=== PATIENT | female | born 1990 | race African-American/Black ===

== ENCOUNTER 2016-06-01 08:08 | Emergency (ER) | payer MEDICAID, OTHER ==
--- NOTE | 2016-06-01 09:11 | ER Document Report ---
ED General - General Chief Complaint: Headache Stated Complaint: HEADACHE Mode of Arrival: Ambulatory Information source: Patient Notes: 26-year-old female presents with complaints of generalized headache nausea vomiting and diarrhea. Patient notes symptoms have been ongoing for a few days , denies any fevers or chills. Patient notes multiple family members have similar complaints TRAVEL OUTSIDE OF THE [place] IN LAST 30 DAYS: No - HPI Onset: Last week Onset/Duration: Persistent Quality of pain: Achy Severity: Mild Pain Level: 1 Associated symptoms: Diarrhea, Headache, Nausea, Vomiting Exacerbated by: Denies Relieved by: Denies Similar symptoms previously: No Recently seen / treated by doctor: No - Related Data Allergies/Adverse Reactions: No Known Allergies Allergy (Verified 06/01/16 08:15) Past Medical History - Social History Smoking Status: Current Every Day Smoker Cigarette use (# per day): No Chew tobacco use (# tins/day): No Smoking Education Provided: No Frequency of alcohol use: None Drug Abuse: None Family History: Arthritis, CAD, CVA, DM, Hypertension, Malignancy Patient has suicidal ideation: No Patient has homicidal ideation: No Pulmonary Medical History: Denies: Hx Tuberculosis Neurological Medical History: Denies: Hx Seizures Renal/ Medical History: Denies: Hx Peritoneal Dialysis Psychiatric Medical History: Reports: Hx Anxiety, Hx Depression Past Surgical History: Reports: Hx Section. Denies: Hx Pacemaker - Immunizations Immunizations up to date: Yes Hx Diphtheria, Pertussis, Tetanus Vaccination: Yes Review of Systems - Review of Systems Notes: REVIEW OF SYSTEMS: CONSTITUTIONAL : Denies fever, chills, or sweats. Denies recent illness. EENT: Denies eye, ear, throat, or mouth pain or symptoms. Denies nasal or sinus congestion or discharge. Denies throat, tongue, or mouth swelling or difficulty swallowing. CARDIOVASCULAR: Denies chest pain. Denies palpitations or racing or irregular heart beat. Denies ankle edema. RESPIRATORY: Denies cough, cold, or chest congestion. Denies shortness of breath, difficulty breathing, or wheezing. GASTROINTESTINAL: Admits to nausea vomiting diarrhea GENITOURINARY: Denies difficulty urinating, painful urination, burning, frequency, blood in urine, or discharge. FEMALE GENITOURINARY: Denies vaginal bleeding, heavy or abnormal periods, irregular periods. Denies vaginal discharge or odor. MUSCULOSKELETAL: Denies back or neck pain or stiffness. Denies joint pain or swelling. SKIN: Denies rash, lesions or sores. HEMATOLOGIC : Denies easy bruising or bleeding. LYMPHATIC: Denies swollen, enlarged glands. NEUROLOGICAL: Admits to headache PSYCHIATRIC: Denies anxiety or stress. Denies depression, suicidal ideation, or homicidal ideation. ALL OTHER SYSTEMS REVIEWED AND NEGATIVE. Dictation was performed using [employer] voice recognition software PHYSICAL EXAMINATION: GENERAL: Well-appearing, well-nourished and in no acute distress. HEAD: Atraumatic, normocephalic. EYES: Pupils equal round and reactive to light, extraocular movements intact, conjunctiva are normal. ENT: Nares patent, oropharynx clear without exudates. Moist mucous membranes. NECK: Normal range of motion, supple without lymphadenopathy LUNGS: Breath sounds clear to auscultation bilaterally and equal. No wheezes rales or rhonchi. HEART: Regular rate and rhythm without murmurs ABDOMEN: Soft, nontender, nondistended abdomen. No guarding, no rebound. No masses appreciated. Female : deferred Musculoskeletal: Normal range of motion, no pitting or edema. No cyanosis. NEUROLOGICAL: Cranial nerves grossly intact. Normal speech, normal gait. Normal sensory, motor exams PSYCH: Normal mood, normal affect. SKIN: Warm, Dry, normal turgor, no rashes or lesions noted. Physical Exam - Vital signs Vitals: Temp Pulse Resp BP Pulse Ox 98.6 F 122 H 18 137/87 H 100 06/01/16 08:15 06/01/16 08:15 06/01/16 08:15 06/01/16 08:15 06/01/16 08:15 Course - Re-evaluation Re-evalutation: 06/01/16 16:09 Patient was initially tachycardic on arrival however reevaluation noted resolution of tachycardia. Patient was given nausea control is otherwise stable for discharge patient is in no distress and stable I believe patient has a viral syndrome After performing a Medical Screening Examination, I estimate there is LOW risk for ACUTE CORONARY SYNDROME, RESPIRATORY FAILURE, SEPSIS OR MENINGITIS, thus I consider the discharge disposition reasonable. The patient and I have discussed the diagnosis and risks, and we agree with discharging home with close follow- up. We also discussed returning to the Emergency Department immediately if new or worsening symptoms occur. We have discussed the symptoms which are most concerning (e.g., changing or worsening pain, trouble swallowing or breathing, neck stiffness, fever) that necessitate immediate return. - Vital Signs Vital signs: Temp Pulse Resp BP Pulse Ox 98.8 F 92 20 119/70 97 06/01/16 09:20 06/01/16 09:20 06/01/16 09:20 06/01/16 09:20 06/01/16 09:20 Discharge - Discharge Clinical Impression: Headache Qualifiers: Headache type: unspecified Headache chronicity pattern: chronic headache Intractability: not intractable Qualified Code(s): R51 - Headache Nausea & vomiting Qualifiers: Vomiting type: unspecified Vomiting Intractability: non-intractable Qualified Code(s): R11.2 - Nausea with vomiting, unspecified Diarrhea Qualifiers: Diarrhea type: unspecified type Qualified Code(s): R19.7 - Diarrhea, unspecified Condition: Stable Disposition: HOME, SELF-CARE Instructions: Viral Syndrome ([facility]) Prescriptions: Promethazine HCl [Phenergan 25 mg Tablet] 1 - 2 tab PO Q6H PRN #15 tablet PRN Reason: Referrals: CARLA MCCLELLAN DO [Primary Care Provider] - 06/04/16
[2016-06-01 09:21] VITALS: BP 119/70
== END 2016-06-01 09:40 | disposition home or self-care (01) ==
LOC: ER 08:08
DX: R51 Headache (principal); R11.2 Nausea with vomiting, unspecified; R19.7 Diarrhea, unspecified; F17.200 Nicotine dependence, unspecified, uncomplicated
CPT/HCPCS: 99283

== ENCOUNTER → 2017-03-23 | Outpatient (CLI) | payer MEDICAID | LOC: LAB 12:32 | PROVIDERS: ATTEND Emergency Medicine | DX: N39.0 Urinary tract infection, site not specified (principal); M54.5 Low back pain | CPT/HCPCS: 87086 ==

== ENCOUNTER 2017-07-04 08:27 | Emergency (ER) | payer MEDICAID ==
[2017-07-04] MEDS ORDERED: LOPERAMIDE HCL 2 MG CAPSULE PO ONE (09:20)
[2017-07-04] MEDS ORDERED: DICYCLOMINE HCL INJ 20 MG/2 ML AMPULE IM ONE (09:21)
--- NOTE | 2017-07-04 09:22 | ER Document Report ---
ED Flu Like - General Mode of Arrival: Ambulatory Information source: Patient TRAVEL OUTSIDE OF THE [place] IN LAST 30 DAYS: No - General Chief Complaint: Flu Symptoms Stated Complaint: FLU SYMPTOMS Time Seen by Provider: 07/04/17 09:02 Notes: Patient is a 27 year old female with no significant medical history presents to the emergency department complaining of multiple symptoms including nausea, diarrhea, abdominal pain, diaphoresis, chills, and body aches onset 2 days ago. Patient states she was eating dinner when she began to have symptoms and initially thought she had food poisoning. Patient further states that solids and liquids goes right through her. She also complains of some weakness. Patient denies sore throat, vomiting, blood in stool, rhinorrhea, earaches, dysuria or hematuria. (CECILIO WARNER) - Related Data Allergies/Adverse Reactions: No Known Allergies Allergy (Verified 06/01/16 08:15) Past Medical History - General Information source: Patient - Social History Smoking Status: Current Every Day Smoker Smoking Education Provided: Yes - >4 mins Family History: Arthritis, CAD, CVA, DM, Hypertension, Malignancy Psychiatric Medical History: Reports: Hx Anxiety, Hx Depression Past Surgical History: Reports: Hx Section - Immunizations Immunizations up to date: Yes Hx Diphtheria, Pertussis, Tetanus Vaccination: Yes Review of Systems - Review of Systems Constitutional: See HPI, Chills, Diaphoresis EENT: No symptoms reported Cardiovascular: No symptoms reported Respiratory: No symptoms reported Gastrointestinal: See HPI, Abdominal pain, Diarrhea, Nausea Genitourinary: No symptoms reported Female Genitourinary: No symptoms reported Musculoskeletal: See HPI Skin: No symptoms reported Hematologic/Lymphatic: No symptoms reported Neurological/Psychological: No symptoms reported -: Yes All other systems reviewed and negative Physical Exam - Vital signs Vitals: Temp Pulse Resp BP Pulse Ox 98.6 F 95 18 137/88 H 100 07/04/17 08:34 07/04/17 08:34 07/04/17 08:34 07/04/17 08:34 07/04/17 08:34 - Notes Notes: GENERAL: Alert, interacts well. No acute distress. HEAD: Normocephalic, atraumatic. EYES: Pupils equal, round, and reactive to light. Extraocular movements intact. ENT: Oral mucosa moist, tongue midline. NECK: Full range of motion. Supple. Trachea midline. LUNGS: Clear to auscultation bilaterally, no wheezes, rales, or rhonchi. No respiratory distress. HEART: Regular rate and rhythm. No murmurs, gallops, or rubs. ABDOMEN: Soft, mild diffuse tenderness to palpation. No guarding, rigidity, or rebounding. Non-distended. Bowel sounds present in all 4 quadrants. EXTREMITIES: Moves all 4 extremities spontaneously. NEUROLOGICAL: Alert and oriented x3. Normal speech. PSYCH: Normal affect, normal mood. SKIN: Warm, dry, normal turgor. No rashes or lesions noted. BACK: No CVA tenderness to percussion. No bony tenderness to palpation, no step- offs or deformities. (CECILIO WARNER) Course - Re-evaluation Re-evalutation: 07/04/17 09:33 Abdomen is benign, clinically no evidence of dehydration or intra-abdominal catastrophe, low suspicion for bacterial infection, appendicitis, biliary colic or renal colic. Patient will be discharged home, cramping abdominal pain will be treated with Bentyl, diarrhea will be treated with Imodium. Discussed the possibility that this may be influenza however she is out of timeframe for treatment with Tamiflu. Patient understands why she will not be receiving Tamiflu. Understands why patient will be treated with Imodium. Will return for fevers, worsening abdominal pain, blood in the stool or any new or concerning symptoms. (CHERYL DOWNEY) - Vital Signs Vital signs: Temp Pulse Resp BP Pulse Ox 98.8 F 99 20 126/77 H 100 07/04/17 09:58 07/04/17 09:58 07/04/17 09:58 07/04/17 09:58 07/04/17 09:58 Discharge - Discharge Clinical Impression: Elevated blood pressure reading, Tobacco abuse, Tobacco abuse counseling Diarrhea Qualifiers: Diarrhea type: unspecified type Qualified Code(s): R19.7 - Diarrhea, unspecified Abdominal pain Qualifiers: Abdominal location: generalized Qualified Code(s): R10.84 - Generalized abdominal pain Condition: Stable Disposition: HOME, SELF-CARE Additional Instructions: Diarrhea Diarrhea means frequent, watery stools. There are many causes. Any problem that keeps the intestinal tract from absorbing water from the stool can lead to diarrhea. A sudden new diarrhea problem is usually caused by a virus, food sensitivity, toxic bacteria, or drugs. In this case, we expect the problem to go away soon. Testing is done only if you seem seriously ill from the diarrhea. If you have chronic diarrhea, or diarrhea that keeps coming back, we need to find out why. Chronic diarrhea can be due to inflammation of the bowels such as Crohn's disease or ulcerative colitis, food sensitivity such as intolerance to lactose or wheat protein, irritable bowel syndrome, and other problems. If your diarrhea is a significant problem but it's not clear why you have it, we' ll refer you to a specialist for further testing. During an episode of diarrhea, drink small amounts (two to six ounces) of clear liquids (soft drinks, sport drinks, herb teas, broth, etc). Take fluids frequently to prevent dehydration. It's usually not a problem to take mild anti- diarrhea medication such as Imodium, this double needle stitcher be obtained over the counter. As the diarrhea eases, advance to small amounts of bland food (mashed potato, toast ) for 24 hours. Call the physician if blood appears in your vomit or stool, if vomiting lasts longer than 24 hours, if the abdominal pain worsens or becomes localized to one area, if you develop high fever, or if you become lightheaded and weak. Prescriptions: Dicyclomine HCl [Bentyl 20 mg Tablet] 20 mg PO QID #40 tablet Forms: Elevated Blood Pressure, Smoking Cessation Education Referrals: CARLA MCCLELLAN DO [Primary Care Provider] - Follow up in 3-5 days Keiryibe Attestation: 07/04/17 15:18 I personally performed the services described in the documentation, reviewed and edited the documentation which was dictated to the scribe in my presence, and it accurately records my words and actions. (CHERYL DOWNEY) Scribe Documentation - Scribe Written by Gerber:: Gerber Stephen, 07/04/2017 09:23 acting as scribe for :: Noah
[2017-07-04 10:24] VITALS: BP 126/77
== END 2017-07-04 10:05 | disposition home or self-care (01) ==
LOC: ER 08:27
DX: R10.84 Generalized abdominal pain (principal); R19.7 Diarrhea, unspecified; R11.0 Nausea; R61 Generalized hyperhidrosis; R68.83 Chills (without fever); R53.1 Weakness; F17.200 Nicotine dependence, unspecified, uncomplicated; Z71.6 Tobacco abuse counseling; R03.0 Elevated blood-pressure reading, without diagnosis of hypertension
CPT/HCPCS: 99283; 96372; J0500; J3490

== ENCOUNTER 2017-08-26 08:43 | Emergency (ER) | payer MEDICAID ==
--- NOTE | 2017-08-26 09:25 | ER Document Report ---
ED General - General Chief Complaint: Abdominal Cramping Stated Complaint: STOMACH PAIN, BACK PAIN Time Seen by Provider: 08/26/17 09:10 Notes: Patient is a 19-year-old female who presents emergency department the chief complaint of back pain for the past 2 weeks with now 1 week of diarrhea, without nausea, vomiting. Patient states that she went to urgent care a week ago told she was dehydrated and she has been drinking plenty of fluids. She has not been taking Tylenol Motrin. She denies any focal abdominal pain, fevers. She states that she never had a history of back pain. Denies any recent abnormal heavy lifting or injury. Patient's last menstrual period was 3 weeks ago. TRAVEL OUTSIDE OF THE [place] IN LAST 30 DAYS: No - Related Data Allergies/Adverse Reactions: No Known Allergies Allergy (Verified 06/01/16 08:15) Home Medications: [email or web address] Past Medical History - Social History Smoking Status: Current Every Day Smoker Frequency of alcohol use: None Drug Abuse: None Family History: Arthritis, CAD, CVA, DM, Hypertension, Malignancy Patient has suicidal ideation: No Patient has homicidal ideation: No Renal/ Medical History: Denies: Hx Peritoneal Dialysis Psychiatric Medical History: Reports: Hx Anxiety, Hx Depression Past Surgical History: Reports: Hx Section - Immunizations Immunizations up to date: Yes Hx Diphtheria, Pertussis, Tetanus Vaccination: Yes Physical Exam - Vital signs Vitals: Temp Pulse Resp BP Pulse Ox 98.7 F 95 16 143/86 H 98 08/26/17 08:50 08/26/17 08:50 08/26/17 08:50 08/26/17 08:50 08/26/17 08:50 - Notes Notes: PHYSICAL EXAM GENERAL: Alert, interacts well. HEAD: Normocephalic, atraumatic. EYES: Pupils equal, round, and reactive to light. Extraocular movements intact. ENT: Oral mucosa moist, tongue midline. NECK: Full range of motion. Supple. Trachea midline. LUNGS: Clear to auscultation bilaterally, no wheezes, rales, or rhonchi. No respiratory distress. HEART: Regular rate and rhythm. No murmurs, gallops, or rubs. ABDOMEN: Soft, nondistended, nontender. No guarding, rebound, or rigidity.. Bowel sounds present in all 4 quadrants. EXTREMITIES: Moves all 4 extremities spontaneously. No edema, radial and dorsalis pedis pulses 2/4 bilaterally. No cyanosis. Back: Bilateral paralumbar muscular tenderness palpation without any spinous process deformities, step-offs. NEUROLOGICAL: Alert and oriented x4. Normal speech. PSYCH: Normal affect, normal mood. SKIN: Warm, dry, normal turgor. No rashes or lesions noted. Course - Re-evaluation Re-evalutation: 08/26/17 09:48 Patient presents with low back pain without signs of spinal cord compression, cauda equina syndrome, infection, aneurysm, or other serious etiology. The patient is neurologically intact. Given the extremely low risk of these diagnoses further testing and evaluation for these possibilities does not appear to be indicated at this time. Regarding patient's diarrhea. No abdominal tenderness at all. Patient with stable vital signs. Tolerating p.o. without any difficulty. Patient is not completed any recent antibiotics and or she had any recent hospital stays concerning for exposure to C. difficile. Will discharge home with conservative management the patient has been instructed to return if the symptoms worsen or change in any way. - Vital Signs Vital signs: Temp Pulse Resp BP Pulse Ox 98.7 F 95 16 143/86 H 98 08/26/17 08:50 08/26/17 08:50 08/26/17 08:50 08/26/17 08:50 08/26/17 08:50 Discharge - Discharge Clinical Impression: Diarrhea Qualifiers: Diarrhea type: unspecified type Qualified Code(s): R19.7 - Diarrhea, unspecified Back pain Qualifiers: Back pain location: low back pain Chronicity: acute Back pain laterality: bilateral Sciatica presence: without sciatica Qualified Code(s): M54.5 - Low back pain Condition: Good Disposition: HOME, SELF-CARE Instructions: Diarrhea, Nonspecific ([facility]) Additional Instructions: LOW BACK PAIN: Three out of every four people will have an episode of disabling back pain during their lifetime. Most commonly the pain is due to straining of the muscles and ligaments in the low back. Usual treatment includes: (1) Rest on a firm surface. Avoid lying on your stomach. (2) Ice pack the painful area. After a few days, gentle heat may be used intermittently to relax the area, or ice packs can be continued. (3) Medication may be needed -- muscle relaxers and antiinflammatory medicines are commonly used. (4) As the back improves, exercises are prescribed to strengthen the back and abdominal muscles. Your doctor will advise you on the proper care for your back at each stage in your recovery. You may be better in a few days -- or healing may take several weeks. If new symptoms of a "herniated disc" (radiation of pain, numbness, or tingling down the back of the leg or weakness in the leg) occur, you should be re-examined. Further testing may be necessary. MUSCLE RELAXERS: Muscle relaxing medications are usually prescribed for acute muscle spasm or injury to the neck and back. They are often combined with antiinflammatory pain medication for increased relief. You may stop the muscle relaxer when the pain and stiffness have improved. Start the medication again if spasms recur. Muscle relaxers may cause drowsiness, especially with the first dose. Do not operate machinery or drive while under the effects of the medication. Most muscle relaxers last up to 24 hours. Do not combine the medication with alcohol. ICE PACKS: Apply ice packs frequently against the painful area. Many different schedules are recommended, such as "20 minutes on, 20 minutes off" or "one hour ice, two hours rest." If you need to work, you may need to go longer between ice treatments. You should plan to have the area ice packed AT LEAST one fourth of the time. The ice should be applied over the wrap, tape, or splint, or over a layer of cloth -- not directly against the skin. Some ice bags have a built-in cloth and can be put directly on the skin. WARM PACKS: After approximately two days, apply gentle heat (such as a heating pad or hot water bottle) for about 20 to 30 minutes about every two hours -- at least four times daily. Warmth and elevation will help you make a more rapid recovery , and will ease the pain considerably. Do not use HOT heat, and never apply heat for longer than 30 minutes. The continuous heat can invisibly damage skin and muscles -- even when no burn is seen on the surface. Damaged muscles can make you MORE sore. FOLLOW-UP CARE: If you have been referred to a physician for follow-up care, call the physician s office for an appointment as you were instructed or within the next two days. If you experience worsening or a significant change in your symptoms, notify the physician immediately or return to the Emergency Department at any time for re-evaluation. Prescriptions: Cyclobenzaprine HCl [Flexeril 10 mg Tablet] 10 mg PO TIDP PRN #15 tab PRN Reason: Ibuprofen [Motrin 800 mg Tablet] 800 mg PO Q8H PRN #30 tab PRN Reason: Forms: Elevated Blood Pressure Referrals: AGUILA SANDOVAL MD [Primary Care Provider] - Follow up in 1 week
[2017-08-26 09:37] LABS: APPEARANCE,URINE CLEAR; BILIRUBIN,URINE NEGATIVE (NEGATIVE); COLOR,URINE YELLOW; GLUCOSE, URINE NEGATIVE (NEGATIVE); KETONES,URINE NEGATIVE (NEGATIVE); LEUKOCYTE ESTERASE,URINE NEGATIVE (NEGATIVE); NITRITE,URINE NEGATIVE (NEGATIVE); PROTEIN,URINE NEGATIVE (NEGATIVE); URINE SPECIFIC GRAVITY 1.021; UROBILINOGEN,URINE NEGATIVE mg/dL (<2.0)
[2017-08-26] MEDS ORDERED: IBUPROFEN 800 MG TABLET PO ONE (09:51)
[2017-08-26 10:25] VITALS: BP 138/89
== END 2017-08-26 10:25 | disposition home or self-care (01) ==
LOC: ER 08:43
DX: M54.5 Low back pain (principal); R19.7 Diarrhea, unspecified; F17.200 Nicotine dependence, unspecified, uncomplicated; F41.9 Anxiety disorder, unspecified; F32.9 Major depressive disorder, single episode, unspecified; Z79.899 Other long term (current) drug therapy
CPT/HCPCS: 99284; 81025; 81001; J3490

== ENCOUNTER → 2017-08-28 | Outpatient (CLI) | payer MEDICAID | LOC: LAB 09:31 | PROVIDERS: ATTEND Nurse Practitioner Family | DX: N91.2 Amenorrhea, unspecified (principal) | CPT/HCPCS: 36415; 84702 ==

== ENCOUNTER 2017-10-09 11:34 | Emergency (ER) | payer MEDICAID ==
[2017-10-09 11:41] VITALS: BP 158/87
--- NOTE | 2017-10-09 11:52 | ER Document Report ---
HPI - HPI Patient complains to provider of: Sore throat Pain Level: 3 Context: Patient is a 27-year-old female complaining of sore throat, chills, body aches 2 days. Patient denies cough or postnasal drainage. Patient works at a call center. Associated Symptoms: Body/muscle aches, Chills, Fever, Headache, Hoarseness. denies: Nonproductive cough, Drooling, Nausea, Vomiting, Rhinnorhea, Sinus pain/ drainage, Shortness of breath Exacerbated by: Denies Relieved by: Denies Similar symptoms previously: Yes Recently seen / treated by doctor: No - ROS Systems Reviewed and Negative: Yes All other systems reviewed and negative - EENT EENT: REPORTS: Sore Throat, Ear Pain - REPRODUCTIVE Reproductive: DENIES: : Past Medical History - General Information source: Patient - Social History Smoking Status: Current Some Day Smoker Frequency of alcohol use: None Drug Abuse: None Occupation: Call center Lives with: Family Family History: Arthritis, CAD, CVA, DM, Hypertension, Malignancy Patient has suicidal ideation: No Patient has homicidal ideation: No - Medical History Medical History: Other - Obesity Renal/ Medical History: Denies: Hx Peritoneal Dialysis Psychiatric Medical History: Reports: Hx Anxiety, Hx Depression Past Surgical History: Reports: Hx Section - Immunizations Immunizations up to date: Yes Hx Diphtheria, Pertussis, Tetanus Vaccination: Yes Vertical Provider Document - CONSTITUTIONAL Agree With Documented VS: Yes Exam Limitations: No Limitations General Appearance: WD/WN, No Apparent Distress, Obese - INFECTION CONTROL TRAVEL OUTSIDE OF THE [place] IN LAST 30 DAYS: No - HEENT HEENT: Atraumatic, PERRLA, Pharyngeal Tenderness, Pharyngeal Erythema Notes: Positive tonsillar hypertrophy + exudate. No signs of peritonsillar abscess or Ez angina. Patient is talking and swallowing without difficulty - NECK Neck: Supple, Lymphadenopathy-Left, Lymphadenopathy-Right - RESPIRATORY Respiratory: Breath Sounds Normal, No Respiratory Distress - CARDIOVASCULAR Cardiovascular: Regular Rate, Regular Rhythm - GI/ABDOMEN Gastrointestinal: Abdomen Soft - NEURO Level of Consciousness: Awake, Alert, Appropriate - DERM Integumentary: Warm, Dry, No Rash Course - Re-evaluation Re-evalutation: 10/09/17 11:55 History and physical are consistent with strep throat. Will provide course of antibiotics. No signs or symptoms of respiratory distress or airway compromise , peritonsillar abscess or epiglottitis. Home care, primary care follow-up in ED return precautions discussed with patient. Patient is agreeable to plan and stable for discharge - Vital Signs Vital signs: Temp Pulse Resp BP Pulse Ox 98.9 F 119 H 16 158/87 H 97 10/09/17 11:39 10/09/17 11:39 10/09/17 11:39 10/09/17 11:39 10/09/17 11:39 Discharge - Discharge Clinical Impression: Strep throat Condition: Stable Disposition: HOME, SELF-CARE Instructions: Penicillin V K ([facility]), Strep Throat ([facility]) Additional Instructions: You are being treated for strep throat. Take all antibiotic as prescribed. Recommend new toothbrush in 2 days. Lozenges, salt water gargles for comfort. Follow-up with your primary care if symptoms persist, return to ED for any worsening of your status Prescriptions: Ibuprofen [Motrin 800 Mg Tablet] 800 mg PO Q6H #20 tablet Penicillin V Potassium 500 mg PO BID #20 tablet Forms: Return to Work
== END 2017-10-09 11:57 | disposition home or self-care (01) ==
LOC: ER 11:34
DX: J02.0 Streptococcal pharyngitis (principal); M79.1 Myalgia; R51 Headache; R49.0 Dysphonia; R50.9 Fever, unspecified; H92.09 Otalgia, unspecified ear; F17.200 Nicotine dependence, unspecified, uncomplicated
CPT/HCPCS: 99282

== ENCOUNTER 2017-11-24 09:14 | Emergency (ER) | payer MEDICAID ==
[2017-11-24] MEDS ORDERED: ONDANSETRON HCL INJ/PF 4 MG/2 ML SDV IV ONE (10:30)
--- NOTE | 2017-11-24 10:35 | ER Document Report ---
ED General - General Chief Complaint: Abdominal Pain Stated Complaint: DIARREAH/ABDOMINAL PAIN Time Seen by Provider: 11/24/17 10:20 TRAVEL OUTSIDE OF THE [place] IN LAST 30 DAYS: No - HPI Notes: Patient is a 27-year-old female with no significant past medical history who presents to the ED complaining of occasional watery diarrhea and loose stool, nausea, mild headache behind her eyes bilaterally 3 days. Patient states that she is primarily here she wants a blood test for . Patient states that she is still eating and drinking, but does have a decreased p.o. intake. She does not have any abdominal pain. She has not had any vaginal odor, discharge, or bleeding. Her last menstrual period was October 19. Patient states that she is urinating normally. Patient states that she is supposed to wear glasses, but does not and believes that she may be causing eyestrain when she is at work. No other concerns or complaints at this time. Patient has had headaches like this in the past. Denies any fever, head injury, neck pain/ stiffness, changes in vision/speech/mentation/hearing, URI, sore throat, chest pain, palpitations, syncope, cough, shortness of breath, wheeze, dyspnea, abdominal pain, vomiting, urinary retention, dysuria, hematuria, back pain, loss of control of bowel or bladder, numbness/tingling, or rash. - Related Data Allergies/Adverse Reactions: No Known Allergies Allergy (Verified 11/24/17 09:15) Past Medical History - Social History Smoking Status: Never Smoker Family History: Arthritis, CAD, CVA, DM, Hypertension, Malignancy Renal/ Medical History: Denies: Hx Peritoneal Dialysis Psychiatric Medical History: Reports: Hx Anxiety, Hx Depression Past Surgical History: Reports: Hx Section - Immunizations Immunizations up to date: Yes Hx Diphtheria, Pertussis, Tetanus Vaccination: Yes Review of Systems - Review of Systems -: Yes All other systems reviewed and negative Physical Exam - Vital signs Vitals: Temp Pulse Resp BP Pulse Ox 98.8 F 103 H 18 133/81 H 98 11/24/17 09:23 11/24/17 09:23 11/24/17 09:23 11/24/17 09:23 11/24/17 09:23 - Notes Notes: PHYSICAL EXAMINATION: GENERAL: Well-appearing, well-nourished and in no acute distress. A&Ox4. Answers questions appropriately. HEAD: Atraumatic, normocephalic. Non-tender. EYES: Pupils equal round and reactive to light, extraocular movements intact, sclera anicteric, conjunctiva are normal. No nystagmus. vis junior intact. ENT: EAC clear b/l. TM's intact b/l without erythema, fluid, or perforation. Nares patent and without discharge. oropharynx clear without exudates. No tonsilar hypertrophy or erythema. Moist mucous membranes. No sinus tenderness. NECK: Normal range of motion, supple without lymphadenopathy. No rigidity/ meningismus. No midline tenderness. LUNGS: Breath sounds clear to auscultation bilaterally and equal. No wheezes rales or rhonchi. HEART: Regular rate and rhythm without murmurs, rubs, gallops. ABDOMEN: Soft, nontender, nondistended abdomen. No guarding, no rebound. Normal bowel sounds present. No CVA tenderness bilaterally. No tenderness throughout her abd including McBurney point. neg nichols. Musculoskeletal: Ext b/l: FROM to passive/active. Strength 5+/5. No deficits noted. No bony tenderness of extremities. Extremities: No cyanosis, clubbing, or edema b/l. Peripheral pulses 2+. Capillary refill less than 2 seconds. NEUROLOGICAL: NIH 0. GCS 15. Cranial nerves grossly intact. Normal speech, normal gait. Normal sensory, motor exams. Reflexes 2+ b/l. LOLA's negative. Pronator drift negative. Heel/carter, finger/nose wnl. PSYCH: Normal mood, normal affect. SKIN: Warm, Dry, normal turgor, no rashes or lesions noted. Course - Re-evaluation Re-evalutation: 11/24/17 12:03 Patient is an afebrile, well-hydrated, 27-year-old female who presents to the ED with diarrhea, suspect viral infection. Vitals are acceptable without any significant tachycardia, tachypnea, or hypoxia. PE is otherwise unremarkable. Patient's abdomen is soft and nontender. Patient is tolerating p.o. without difficulties and is nontoxic-appearing. Patient did receive Zofran which did help with her nausea and her headache. CBC shows a minimally elevated white blood cell count, but patient does have watery diarrhea and presumed viral infection. CMP hemolyzed, and patient would not allow for another blood draw to be performed. HCG was negative. Urinalysis was unremarkable. Patient states that she is feeling better and just wants to go home at this time. I did review with patient that I cannot comment on her electrolytes, liver, kidney because of the CMP hemolyzation. Patient relates understanding and does not want any more blood drawn as they had trouble getting earlier. Patient states that she just wants to go home at this time. I will send her home with a prescription for Zofran. Based on her current presentation and symptomatology I do have a low suspicion for any acute abdomen, sepsis, meningitis, severe dehydration, respiratory compromise, ectopic, or other systemic emergent condition at this time. Patient is aware that condition can change from initial presentation and she needs to monitor symptoms closely and seek medical attention with any acute changes. Conservative measures otherwise for symptoms. Recheck with your PCM in 2-3 days. Return to the ED with any worsening/concerning symptoms otherwise as reviewed in discharge. Patient is in agreement. - Vital Signs Vital signs: Temp Pulse Resp BP Pulse Ox 98.8 F 103 H 18 133/81 H 98 11/24/17 09:23 11/24/17 09:23 11/24/17 09:23 11/24/17 09:23 11/24/17 09:23 - Laboratory Result Diagrams: 11/24/17 10:48 11/24/17 10:48 Laboratory results interpreted by me: 11/24/17 10:48 WBC 12.5 H MCV 78 L MCH 25.3 L RDW 16.3 H Absolute Neutrophils 8.5 H Discharge - Discharge Clinical Impression: Nausea Diarrhea Qualifiers: Diarrhea type: unspecified type Qualified Code(s): R19.7 - Diarrhea, unspecified Headache Qualifiers: Headache type: unspecified Headache chronicity pattern: acute headache Intractability: not intractable Qualified Code(s): R51 - Headache Condition: Stable Disposition: HOME, SELF-CARE Instructions: Headache ([facility]), Diarrhea, Nonspecific ([facility]), Nausea or Vomiting, Nonspecific ([facility]) Additional Instructions: Maintain adequate fluid and food intake Layton diet ([employer] Bananas, rice, apples, toast, etc Zofran as needed tylenol if needed Monitor for any worsening symptoms Make sure you are staying hydrated enough to urinate and have normal BM's Recheck with your PCM in 2-3 days Consider consult with Gastroenterology for ongoing/worsening symptoms Return to the ED with any worsening symptoms and/or development of fever, headache, chest pain, palpitations, syncope, shortness of breath, trouble breathing, abdominal pain, n/v/d, blood in stool/urine, weakness, or other worsening symptoms that are concerning to you. Prescriptions: Ondansetron [Zofran Odt 4 mg Tablet] 1 - 2 tab PO Q4H PRN #15 tab.rapdis PRN Reason: For Nausea/Vomiting Forms: Elevated Blood Pressure Referrals: TRACEY VARNER MD [ACTIVE STAFF] - Follow up as needed
[2017-11-24 11:02] LABS: ABSOLUTE BASOPHILS # (AUTO) 0.1 10^3/uL (0.0-0.2); ABSOLUTE EOSINOPHILS # (AUTO) 0.2 10^3/uL (0.0-0.6); ABSOLUTE LYMPHOCYTES (AUTO) 2.9 10^3/uL (0.5-4.7); ABSOLUTE MONOCYTES (AUTO) 0.7 10^3/uL (0.1-1.4); ABSOLUTE NEUT (AUTO) 8.5 10^3/uL (1.7-8.2); BASOPHILS % (AUTO) 0.7 % (0-2); EOSINOPHILS % (AUTO) 1.7 % (0-6); HEMATOCRIT 38.9 % (36.0-47.0); HEMOGLOBIN 12.6 g/dL (12.0-15.5); LYMPHOCYTES % (AUTO) 23.3 % (13-45); MEAN CORPUSCULAR HEMOGLOBIN 25.3 pg (27.0-33.4); MEAN CORPUSCULAR HGB CONC 32.3 g/dL (32.0-36.0); MEAN CORPUSCULAR VOLUME 78 fl (80-97); MONOCYTES % (AUTO) 5.9 % (3-13); PLATELET COUNT 318 10^3/uL (150-450); RED BLOOD COUNT 4.97 10^6/uL (3.72-5.28); RED CELL DISTRIBUTION WIDTH 16.3 % (11.5-14.0); SEGMENTED NEUTROPHILS % (AUTO) 68.4 % (42-78); TOTAL CELLS COUNTED % (AUTO) 100 %; WHITE BLOOD COUNT 12.5 10^3/uL (4.0-10.5)
[2017-11-24 11:48] LABS: APPEARANCE,URINE CLEAR; BILIRUBIN,URINE NEGATIVE (NEGATIVE); COLOR,URINE YELLOW; GLUCOSE, URINE NEGATIVE (NEGATIVE); KETONES,URINE NEGATIVE (NEGATIVE); LEUKOCYTE ESTERASE,URINE NEGATIVE (NEGATIVE); NITRITE,URINE NEGATIVE (NEGATIVE); PROTEIN,URINE NEGATIVE (NEGATIVE); URINE SPECIFIC GRAVITY 1.026; UROBILINOGEN,URINE NEGATIVE mg/dL (<2.0)
[2017-11-24 12:11] VITALS: BP 131/73
== END 2017-11-24 12:13 | disposition home or self-care (01) ==
LOC: ER 09:14
DX: R19.7 Diarrhea, unspecified (principal); R11.0 Nausea; R51 Headache; D72.829 Elevated white blood cell count, unspecified; Z32.02 Encounter for pregnancy test, result negative; Z91.19 Patient's noncompliance with other medical treatment and regimen
CPT/HCPCS: 99284; 96374; 36415; 84703; 85025; 81001; J2405

== ENCOUNTER 2018-11-05 07:33 | Emergency (ER) | payer MEDICAID ==
--- NOTE | 2018-11-05 10:37 | ER Document Report ---
Entered by STEPHEN REYNOLDS SCRIBE 11/05/18 0847 Acting as scribe for:LINDA LEIJA MD ED General - General Chief Complaint: Palpitations Stated Complaint: HEART PALPATATIONS Time Seen by Provider: 11/05/18 08:28 Notes: Patient is a 28-year-old female presenting to the emergency department complaining of heart palpitations. Patient states that about a week ago on the she noticed she was having an irregular heartbeat. Patient states that she looked it up and she believes it heart palpitations. Patient states that usually happens every few minutes throughout the day, patient states that it is usually a couple beats at a time. TRAVEL OUTSIDE OF THE [place] IN LAST 30 DAYS: No - Related Data Allergies/Adverse Reactions: No Known Allergies Allergy (Verified 11/05/18 07:34) Past Medical History - General Information source: Patient - Social History Smoking Status: Current Every Day Smoker Chew tobacco use (# tins/day): No Frequency of alcohol use: Social Drug Abuse: None Family History: Arthritis, CAD, CVA, DM, Hypertension, Malignancy Patient has suicidal ideation: No Patient has homicidal ideation: No Psychiatric Medical History: Reports: Hx Anxiety, Hx Bipolar Disorder, Hx Depression - &anxiety Past Surgical History: Reports: Hx Section - Immunizations Immunizations up to date: Yes Hx Diphtheria, Pertussis, Tetanus Vaccination: Yes Review of Systems - Review of Systems Constitutional: No symptoms reported EENT: No symptoms reported Cardiovascular: See HPI, Palpitations Respiratory: No symptoms reported Gastrointestinal: No symptoms reported Genitourinary: No symptoms reported Female Genitourinary: No symptoms reported Musculoskeletal: No symptoms reported Skin: No symptoms reported Hematologic/Lymphatic: No symptoms reported Neurological/Psychological: No symptoms reported -: Yes All other systems reviewed and negative Physical Exam - Vital signs Vitals: Temp Pulse Resp Pulse Ox 98.3 F 91 16 98 11/05/18 07:43 11/05/18 07:43 11/05/18 07:43 11/05/18 07:43 - Notes Notes: Physical Exam: General: Alert, obese. HEENT: Normocephalic. Atraumatic. PERRL. Extraocular movements intact. Oropharynx clear. Neck: Supple. Non-tender. Respiratory: No respiratory distress. Clear and equal breath sounds bilaterally. Cardiovascular: Regular rate and rhythm. Abdominal: Normal Inspection. Non-tender. No distension. Normal Bowel Sounds. Back: Non-tender. No deformity or step off. Extremities: Moves all four extremities. Upper extremities: Normal inspection. Normal ROM. Lower extremities: Normal inspection. No edema. Normal ROM. Neurological: Normal cognition. AAOx4. Normal speech. Psychological: Normal affect. Normal Mood. Skin: Warm. Dry. Normal color. Course - Re-evaluation Re-evalutation: 11/05/18 10:37 Reviewing the monitor strips for the past 2 hours, I was unable to find any irregularity other than some patient movement but no PVCs, PACs, atrial arrhythmias or ventricular arrhythmias. - Vital Signs Vital signs: Temp Pulse Resp BP Pulse Ox 98.3 F 91 21 H 98 11/05/18 07:43 11/05/18 07:43 11/05/18 08:09 11/05/18 09:00 - EKG Interpretation by Me EKG shows normal: Sinus rhythm, Bartley, Intervals, QRS Complexes, ST-T Waves Rate: Normal - 88 Rhythm: NSR Discharge - Discharge Clinical Impression: Palpitations Condition: Stable Disposition: HOME, SELF-CARE Additional Instructions: Palpitations (Irregular/Rapid Heartrate) Irregular or rapid heartbeat is called "palpitation." To diagnose the cause of palpitation, we have to "catch it in the act" with an EKG. Sinus Tachycardia: This is a rapid (but NORMAL) rhythm that can be due to fever, pain, anxiety, lack of sleep, over-exertion, or drugs. Cold medications, caffeine, and diet pills are particularly likely to cause tachycardia. Usually, all that's required is rest, reassurance, and avoiding caffeine, alcohol, nicotine, and unnecessary medicines. Paroxysmal Atrial Tachycardia (PAT): This abnormally rapid heartbeat is caused by a "short circuit" in the electrical system of the heart. It is not dangerous, unless other heart disease is present. These attacks of PAT may occur occasionally for years. Medication is available for treatment. Paroxysmal Atrial Fibrillation or Atrial Flutter: This is irregular electrical activity in the upper heart chamber. These abnormal rhythms often occur with valve disease or in hearts damaged by hardening of the arteries. These rhythms usually require further testing, for example a cardiac echo. Premature Beats: Extra beats occur more commonly after caffeine, nicotine, alcohol, cold pills, diet pills. Emotional stress or fatigue also provoke them. Extra beats are only dangerous when heart disease is present. They usually need no treatment. If they're frequent, or if evidence of heart disease develops, medication can be given to suppress them. If we were unable to "catch" the palpitations on EKG, you should try to get an EKG immediately if the symptoms begin again. Contact the physician at once if you develop persistent lightheadedness, shortness of breath, chest pain, or swelling of the ankles. We did not see any irregular beats reviewing the monitor for the past 2 hours. If you continue to have the episodes of palpitations, you should follow-up with your primary care provider and that provider can coordinate a Holter monitor or event monitor. RETURN TO THE EMERGENCY ROOM IF ANY NEW OR WORSENING SYMPTOMS. Scribe Attestation: 11/05/18 08:50 I personally performed the services described in the documentation, reviewed and edited the documentation which was dictated to the scribe in my presence, and it accurately records my words and actions. I personally performed the services described in the documentation, reviewed and edited the documentation which was dictated to the scribe in my presence, and it accurately records my words and actions.
[2018-11-05 10:51] VITALS: BP 146/96
--- NOTE | 2018-11-05 13:39 | EKG REPORT ---
SEVERITY:- NORMAL ECG - SINUS RHYTHM : Confirmed by: Rubin Bonilla MD 05-Nov-2018 13:38:26
== END 2018-11-05 10:51 | disposition home or self-care (01) ==
LOC: ER 07:33
DX: R00.2 Palpitations (principal); F17.200 Nicotine dependence, unspecified, uncomplicated
CPT/HCPCS: 93005; 93010; 99284

== ENCOUNTER 2019-04-06 13:19 | Emergency (ER) | payer MEDICAID ==
[2019-04-06 13:38] VITALS: BP 138/80
--- NOTE | 2019-04-06 15:56 | ER Document Report ---
HPI - HPI Patient complains to provider of: Cough Time Seen by Provider: 04/06/19 15:51 Onset: Other - saturday Onset/Duration: Persistent Context: 28-year-old female presents emergency department with complaints of persistent cough since Saturday. Reports she has trouble getting a deep breath. Patient reports she is coughing all the time. Denies fever vomiting diarrhea. Denies history of asthma. Patient is a smoker. Reports decreased smoking since she started this cough. Associated Symptoms: Productive cough Exacerbated by: Denies Relieved by: Denies Similar symptoms previously: No Recently seen / treated by doctor: No - REPRODUCTIVE Reproductive: DENIES: : Past Medical History - General Information source: Patient Last Menstrual Period: Current - Social History Smoking Status: Current Every Day Smoker Cigarette use (# per day): Yes Frequency of alcohol use: None Drug Abuse: None Lives with: Family Family History: Arthritis, CAD, CVA, DM, Hypertension, Malignancy Patient has suicidal ideation: No Patient has homicidal ideation: No Renal/ Medical History: Denies: Hx Peritoneal Dialysis Psychiatric Medical History: Reports: Hx Anxiety, Hx Bipolar Disorder, Hx Depression - &anxiety Past Surgical History: Reports: Hx Section - Immunizations Immunizations up to date: Yes Hx Diphtheria, Pertussis, Tetanus Vaccination: Yes Vertical Provider Document - CONSTITUTIONAL Agree With Documented VS: Yes Exam Limitations: No Limitations General Appearance: WD/WN, No Apparent Distress - INFECTION CONTROL TRAVEL OUTSIDE OF THE [place] IN LAST 30 DAYS: No - HEENT HEENT: Atraumatic, Normal ENT Exam, Normocephalic, PERRLA. negative: Conjuctival Injection, Pharyngeal Erythema, Tympanic Membrane Red - NECK Neck: Normal Inspection, Supple. negative: Lymphadenopathy-Left, Lymphadenopathy-Right - RESPIRATORY Respiratory: Breath Sounds Normal, No Respiratory Distress - GI/ABDOMEN Gastrointestinal: Abdomen Soft, Abdomen Non-Tender - BACK Back: negative: CVA Tenderness-Right, CVA Tenderness-Left - MUSCULOSKELETAL/EXTREMETIES Musculoskeletal/Extremeties: MICHELINE RAMIREZ - NEURO Level of Consciousness: Awake, Alert, Appropriate Motor/Sensory: No Motor Deficit - DERM Integumentary: Warm, Dry Course - Re-evaluation Re-evalutation: 04/06/19 16:31 Chest X-Ray 04/06/19 15:54 IMPRESSION: NO ACUTE RADIOGRAPHIC FINDING IN THE CHEST. 04/06/19 19:59 Presents with complaints of cough since Saturday. No fever vomiting diarrhea. Chest x-ray is negative. Patient was instructed on Tessalon Perles. Instructed to quit smoking follow-up with primary care return for concerns. She verbalized understanding to all instructions. Dictation of this chart was performed using voice recognition software; therefore, there may be some unintended grammatical errors. - Vital Signs Vital signs: Temp Pulse Resp BP Pulse Ox 99.6 F 106 H 16 138/80 H 96 04/06/19 13:37 04/06/19 13:37 04/06/19 13:37 04/06/19 13:37 04/06/19 13:37 - Diagnostic Test Radiology reviewed: Reports reviewed Discharge - Discharge Clinical Impression: Cough Condition: Stable Disposition: HOME, SELF-CARE Instructions: Angelika Rubin ([facility]) Additional Instructions: *You have been evaluated for cold symptoms today, cough Your chest x-ray was negative for pneumonia *Increase fluid intake as discussed *Take medication as prescribed for cough *Quit smoking *Monitor your temperature, take Tylenol as indicated *Follow up with a primary care provider within one week *Return to ED for worsening condition, changes, needs Monitor your blood pressure. Your blood pressure was elevated today. This may be because you were anxious, in pain or because you need medication. It is important to follow up with your primary care provider for full evaluation. Prescriptions: Benzonatate [Tessalon Perles 100 mg Capsule] 100 mg PO ASDIR PRN #20 capsule PRN Reason: Forms: Smoking Cessation Education, Elevated Blood Pressure Referrals: MAYRA LANDRUM MD [Primary Care Provider] - Follow up as needed
--- NOTE | 2019-04-06 16:21 | RADIOLOGY REPORT (SQ) ---
EXAM DESCRIPTION: CHEST 2 VIEWS COMPLETED DATE/TIME: 04/06/2019 4:06 pm REASON FOR STUDY: cough COMPARISON: 12/21/2013 EXAM PARAMETERS: NUMBER OF VIEWS: two views TECHNIQUE: Digital Frontal and Lateral radiographic views of the chest acquired. RADIATION DOSE: NA LIMITATIONS: none FINDINGS: LUNGS AND PLEURA: No opacities, masses or pneumothorax. No pleural effusion. MEDIASTINUM AND HILAR STRUCTURES: No masses or contour abnormalities. HEART AND VASCULAR STRUCTURES: Heart normal size. No evidence for failure. BONES: No acute findings. HARDWARE: None in the chest. OTHER: No other significant finding. IMPRESSION: NO ACUTE RADIOGRAPHIC FINDING IN THE CHEST. TECHNICAL DOCUMENTATION: JOB ID: [id number] [employer]- All Rights Reserved Reading location - IP/workstation name: [email or web address]
== END 2019-04-06 17:06 | disposition home or self-care (01) ==
LOC: ER 13:19
DX: R05 Cough (principal); F17.210 Nicotine dependence, cigarettes, uncomplicated
CPT/HCPCS: 71046; 99283

== ENCOUNTER 2019-11-16 16:22 | Emergency (ER) | payer MEDICAID ==
[2019-11-16 17:08] VITALS: BP 142/98
--- NOTE | 2019-11-16 18:28 | ER Document Report ---
ED Oral Problem - General Chief Complaint: Jaw Pain Stated Complaint: JAW/NECK PAIN Time Seen by Provider: 11/16/19 18:11 Primary Care Provider: [facility] [Provider Group] - Follow up as needed Mode of Arrival: Ambulatory Information source: Patient Notes: Patient is a 29-year-old female comes emergency room left-sided jaw pain. Patient states that she has been placed up on a CPAP within the last 20 days. A couple of days ago she contacted them saying that it was a little tight so they had her loosen up slightly. Patient states that she has major jaw discomfort with some pain down into her neck and shoulder on the left side. She is also having some mild trismus. As a slight popping in the left upper jaw. TRAVEL OUTSIDE OF THE [place] IN LAST 30 DAYS: No - HPI Patient complains to provider of: Jaw pain, Swelling of jaw Onset: Yesterday Onset: Gradual Quality of pain: Achy, Throbbing Severity: Moderate Pain Level: 3 Context: Other - New CPAP Associated symptoms: Facial pain, Jaw pain. denies: Toothache, Tongue swelling, Unable to swallow, White patches in mouth Worsened by: Nothing Relieved by: Nothing Similar symptoms previously: Yes Recently seen / treated by doctor/dentist: No - Related Data Allergies/Adverse Reactions: No Known Allergies Allergy (Verified 11/05/18 07:34) Home Medications: klonopin. latuda. trazadone Past Medical History - General Information source: Patient - Social History Smoking Status: Never Smoker Chew tobacco use (# tins/day): No Frequency of alcohol use: None Drug Abuse: None Lives with: Family Family History: Reviewed & Not Pertinent, Arthritis, CAD, CVA, DM, Hypertension, Malignancy Patient has homicidal ideation: No Renal/ Medical History: Denies: Hx Peritoneal Dialysis Psychiatric Medical History: Reports: Hx Anxiety, Hx Bipolar Disorder, Hx Depression - &anxiety Past Surgical History: Reports: Hx Section - Immunizations Immunizations up to date: Yes Hx Diphtheria, Pertussis, Tetanus Vaccination: Yes Review of Systems - Review of Systems Constitutional: No symptoms reported EENT: Mouth pain, Mouth swelling. denies: Dental problem Cardiovascular: No symptoms reported Respiratory: No symptoms reported Gastrointestinal: No symptoms reported Genitourinary: No symptoms reported Female Genitourinary: No symptoms reported Musculoskeletal: No symptoms reported Skin: No symptoms reported Hematologic/Lymphatic: No symptoms reported Neurological/Psychological: No symptoms reported -: Yes All other systems reviewed and negative Physical Exam - Vital signs Vitals: Temp Pulse Resp BP Pulse Ox 98.3 F 99 20 142/98 H 99 11/16/19 17:01 11/16/19 17:01 11/16/19 17:01 11/16/19 17:01 11/16/19 17:01 Interpretation: Normal, Hypertensive - Notes Notes: PHYSICAL EXAMINATION: GENERAL: Patient is a well-nourished well-developed 29-year-old female who is in no apparent distress although she appears somewhat uncomfortable. HEAD: Atraumatic, normocephalic. EYES: Pupils equal round and reactive to light, extraocular movements intact, conjunctiva are normal. ENT: Examination patient's head and upper airway show nasal mucosa to be normal in appearance. No frontal or maxillary sinus tenderness to palpation. Examination of patient's TMJ area shows that the left side has a small click to it she displays some mild trismus opening her mouth approximately inch and a half with some crepitus noted on the left TMJ area. Patient alternates her jaw left to right there is increased pain on the left side and crepitus felt. NECK: Examination of patient's neck shows some mild spasms going on especially on the left side. She has full range of motion of her neck and head with i ncreased discomfort with rotation to the right flexion extension seem normal. As stated palpation of the trapezius along the left side also shows some spasms. LUNGS: Breath sounds clear to auscultation bilaterally and equal. No wheezes rales or rhonchi. HEART: Regular rate and rhythm without murmurs NEUROLOGICAL: . Normal speech, normal gait. Normal sensory, motor exams PSYCH: Normal mood, normal affect. SKIN: Warm, Dry, normal turgor, no rashes or lesions noted. Course - Re-evaluation Re-evalutation: 11/17/19 00:13 Patient's history shows her to be a 29-year-old morbidly obese female who is awaiting gastric bypass. She is told that she has to be on CPAP for 30 days prior to being interviewed for the gastric bypass. She has been using the CPAP on a regular basis noted that it was very tight until 2 days ago and she contacted the company that placed it and informed her to loosen up the straps slightly. In talking with patient she has been having difficulty with this and it appears that she has been grinding some in her sleep at night. She is not gotten a good night sleep since starting the CPAP machine. Noted that I found some TMJ symptoms and feel that patient has been either biting down or grinding and causing spasms in the neck and TMJ to take place. We will place an patient on a low muscle relaxer and some anti-inflammatory to see if this will relieve her discomfort and pain and she will follow-up with her primary care provider in the company with the CPAP to see if there is other solutions. - Vital Signs Vital signs: Temp Pulse Resp BP Pulse Ox 98.3 F 99 20 142/98 H 99 11/16/19 18:08 11/16/19 17:01 11/16/19 17:01 11/16/19 17:01 11/16/19 17:01 Discharge - Discharge Clinical Impression: TMJ (temporomandibular joint syndrome) Condition: Stable Disposition: HOME, SELF-CARE Instructions: Temporomandibular Joint Injury ([facility]), Temporomandibular Joint Syndrome ([facility]) Additional Instructions: As we discussed because you having the CPAP machine ongoing and you are having to fight it somewhat you sometimes get stressed or tense he grinds her teeth causing the TMJ area of the jaw to get inflamed and therefore causing a problem. This is why the bili was going on at this time. Going to place you on a little muscle relaxer and you take it before bed and during the day if you need to and an anti-inflammatory. I want to discuss this with your physician who has you on the machine and see if there is any another form of the machine you can use. Prescriptions: Diclofenac Potassium 50 mg PO TID #30 tablet Methocarbamol [Robaxin 750 mg Tablet] 750 mg PO TID PRN #21 tablet PRN Reason: Forms: Elevated Blood Pressure Referrals: [facility] [Provider Group] - Follow up as needed
== END 2019-11-16 18:31 | disposition home or self-care (01) ==
LOC: ER 16:22
DX: M26.609 Unspecified temporomandibular joint disorder, unspecified side (principal); R68.84 Jaw pain; E66.01 Morbid (severe) obesity due to excess calories; M54.2 Cervicalgia; M25.512 Pain in left shoulder; K13.79 Other lesions of oral mucosa; R25.2 Cramp and spasm; F31.9 Bipolar disorder, unspecified; F41.9 Anxiety disorder, unspecified; Z79.899 Other long term (current) drug therapy
CPT/HCPCS: 99283